=== PATIENT | male | born 1970 | race Caucasian/White ===

== ENCOUNTER 2017-03-29 12:05 | Inpatient (IN) | payer OTHER ==
[~2017-03-29] VITALS: Ht 172.7 cm; Wt 111.1 kg
[~2017-03-29 12:05] MED LIST: CIPROFLOXACN500 MG PO; LORCET HD 10-321 TAB PO; MELOXICAM15 MG PO; METHADONE10 M1 PO
[2017-04-06] VITALS (7 sets, daily range): BP systolic 113–125; BP diastolic 60–80
[2017-04-07 00:40] VITALS: BP 119/86
[2017-04-07 05:00] VITALS: BP 109/73
[2017-04-07 06:13] LABS: HEMOGLOBIN 11.5 g/dl (14.0-18.0)
[2017-04-07 06:22] LABS: ANION GAP 14 (6-22 (CALC)); BUN 13 mg/dL (9-20); BUN/CREATININE RATIO 14 (12-20 (CALC)); CALCIUM 8.8 mg/dL (8.4-10.2); CARBON DIOXIDE 27 mmol/l (22-30); CHLORIDE 104 mmol/l (95-108); GFR > 60 ML/MIN (>=60 (CALC)); GFR FOR AFR.AMER. > 60 ML/MIN (>=60 (CALC)); GLUCOSE 118 mg/dL (75-110); POTASSIUM 4.2 mmol/l (3.5-5.1); SODIUM 141 mmol/l (137-146)
[2017-04-07 08:01] VITALS: BP 114/76
[2017-04-07 15:58] VITALS: BP 115/73
[2017-04-07 19:40] VITALS: BP 123/76
[2017-04-08 00:26] VITALS: BP 104/73
[2017-04-08 04:46] VITALS: BP 115/68
[2017-04-08 05:27] LABS: HEMATOCRIT 32.6 % (39.0-50.0); HEMOGLOBIN 11.1 g/dl (14.0-18.0)
[2017-04-08 08:32] VITALS: BP 120/62
[2017-04-08] MEDS ORDERED: ASPIRIN EC325 MG PO (12:08)
[2017-04-08] MEDS ORDERED: PROTONIX40 MG PO (12:09)
== END 2017-04-08 13:15 | disposition home health service (06) | DRG 470 ==
LOC: MS2 04-06 05:53
PROVIDERS: ADMIT Orthopaedic Surgery; ATTEND Internal Medicine
PROC: 0SR904A Replacement of Right Hip Joint with Ceramic on Polyethylene Synthetic Substitute, Uncemented, Open Approach (ICD-10-PCS; principal; 2017-04-06)
PROC: 0SNDXZZ Release Left Knee Joint, External Approach (ICD-10-PCS; 2017-04-06)
PROC: 3E0U33Z Introduction of Anti-inflammatory into Joints, Percutaneous Approach (ICD-10-PCS; 2017-04-06)
PROC: 3E0U3BZ Introduction of Anesthetic Agent into Joints, Percutaneous Approach (ICD-10-PCS; 2017-04-06)
DX: M16.51 Unilateral post-traumatic osteoarthritis, right hip (principal); G62.9 Polyneuropathy, unspecified; T84.89XA Other specified complication of internal orthopedic prosthetic devices, implants and grafts, initial encounter; T84.82XA Fibrosis due to internal orthopedic prosthetic devices, implants and grafts, initial encounter; N31.9 Neuromuscular dysfunction of bladder, unspecified; T14.90XS Injury, unspecified, sequela; J45.909 Unspecified asthma, uncomplicated; G89.29 Other chronic pain; M54.5 Low back pain; R73.9 Hyperglycemia, unspecified; E66.9 Obesity, unspecified; Y83.1 Surgical operation with implant of artificial internal device as the cause of abnormal reaction of the patient, or of later complication, without mention of misadventure at the time of the procedure; V89.2XXS Person injured in unspecified motor-vehicle accident, traffic, sequela; Z68.37 Body mass index [BMI] 37.0-37.9, adult; Z96.652 Presence of left artificial knee joint; Z79.891 Long term (current) use of opiate analgesic
CPT/HCPCS: J2270; J2795

== ENCOUNTER 2019-01-05 10:39 | Emergency (ER) | payer OTHER ==
[~2019-01-05] VITALS: Ht 172.7 cm; Wt 105.0 kg
[~2019-01-05 10:39] MED LIST changes: +ASPIRIN EC325 MG PO; +PROTONIX40 MG PO
[2019-01-05 12:21] LABS: HEMATOCRIT 46.9 % (39.0-50.0); HEMOGLOBIN 16.1 g/dl (14.0-18.0); IMMATURE GRANULOCYTES 0.4 % (0.0-5.0); MEAN CELL VOLUME 89.7 fL CALC (80.0-100.0); MEAN CORPUSCULAR HGB 30.8 pG CALC (26.0-32.0); MEAN CORPUSCULAR HGB CONC 34.3 g/L CALC (32.0-36.0); NEUT# 9.35 thou/uL (1.82-7.42); RED BLOOD COUNT 5.23 mill/uL (4.70-6.10); RED CELL DISTRI WIDTH 13.6 % (11.5-15.5)
[2019-01-05 12:33] LABS: ALBUMIN 5.5 g/dL (3.2-5.0); ALKALINE PHOSPHATASE 88 u/l (38-126); ANION GAP 21 (6-22 (CALC)); BILIRUBIN, TOTAL 1.3 mg/dL (0.0-1.4); BUN 17 mg/dL (9-20); BUN/CREATININE RATIO 17 (12-20 (CALC)); CARBON DIOXIDE 22 mmol/l (22-30); CHLORIDE 103 mmol/l (95-108); GFR > 60 ML/MIN (>=60 (CALC)); GFR FOR AFR.AMER. > 60 ML/MIN (>=60 (CALC)); LIPASE 94 u/l (23-300); POTASSIUM 4.4 mmol/l (3.5-5.1); SGOT/AST 48 u/l (17-59); SODIUM 141 mmol/l (137-146); TOTAL PROTEIN 8.5 g/dL (6.3-8.2)
[2019-01-05 12:38] LABS: URINE BILIRUBIN - DIPSTICK NEGATIVE (NEGATIVE); URINE BLOOD DIPSTICK TRACE-INTACT (NEGATIVE); URINE COLOR YELLOW; URINE GLUCOSE - DIPSTICK NEGATIVE (NEGATIVE); URINE KETONE >=80 mg/dL (NEGATIVE); URINE LEUK ESTERASE NEGATIVE (Negative); URINE NITRITE - DIPSTICK NEGATIVE (Negative); URINE PROTEIN - DIPSTICK NEGATIVE (NEG-TRACE); URINE SPECIFIC GRAVITY 1.025; URINE UROBILINOGEN - DIPSTICK 0.2 E.U./dL (0.2)
[2019-01-05 12:43] LABS: URINE CLARITY CLEAR
[2019-01-05] MEDS ORDERED: FLEXERIL PO (13:40)
[2019-01-05 14:28] VITALS: BP 135/85
== END 2019-01-05 14:28 | disposition home or self-care (01) | DRG 552 ==
LOC: ED 10:39
DX: S32.018A Other fracture of first lumbar vertebra, initial encounter for closed fracture (principal); S32.028A Other fracture of second lumbar vertebra, initial encounter for closed fracture; S00.31XA Abrasion of nose, initial encounter; V47.5XXA Car driver injured in collision with fixed or stationary object in traffic accident, initial encounter

== ENCOUNTER 2021-12-12 08:21 | Day surgery (SDC) | payer OTHER ==
[~2021-12-12] VITALS: Ht 172.7 cm; Wt 108.8 kg
[~2021-12-12 08:21] MED LIST changes: +CIALIS10 MG PO; +FLEXERIL PO; +MELOXICAM7.5 MG PO
[2021-12-12] MEDS ORDERED: TESTOST CYP100 MG/ML IM (08:54)
[2021-12-12 14:29] VITALS: BP 121/78
== END 2021-12-12 14:10 | disposition home or self-care (01) | DRG 470 ==
LOC: ORM 08:21
PROVIDERS: ATTEND Orthopaedic Surgery
PROC: 0SRB04A Replacement of Left Hip Joint with Ceramic on Polyethylene Synthetic Substitute, Uncemented, Open Approach (ICD-10-PCS; principal; 2021-12-12)
DX: M16.12 Unilateral primary osteoarthritis, left hip (principal); J45.909 Unspecified asthma, uncomplicated; Z96.641 Presence of right artificial hip joint; Z96.652 Presence of left artificial knee joint
CPT/HCPCS: J0131